=== PATIENT | male | born 1950 | race Caucasian/White ===

== ENCOUNTER 2018-02-26 15:24 | Emergency (ER) | payer MEDICARE ==
[2018-02-26 15:47] VITALS: BP 148/80
--- NOTE | 2018-02-26 16:04 | UC ---
Psychiatric Complaint HPI - HPI Summary HPI Summary: 67 yr old white male here w/ SI. He has significant mental illness. Walked himself here. Some of history comes from his that is in a separate room. She reports that he parked his car in the middle of the road and walked down the middle of the road in traffic. Speaking to the pt he states that he started to have thoughts of hurting himself this morning and was planning to drown himself. His reported to staff that he was in the pool today for many hours. He voluntarily walked himself here bc he knows he needs help/observation. STates that he broke protcol and did not call [facility] crisis line once having these thoughts. Denies harming anyone else or himself. He states that he needs to keep himself isolated right now. His is his medication care manager and fiduciary and wants to her to be aware of what is going on with him but wants her outside of [facility] room. - History Of Current Complaint Chief Complaint: UCAlteredMentalStatus Stated Complaint: MENTAL ILLNESS Time Seen by Provider: 02/26/18 15:39 - Allergies/Home Medications Allergies/Adverse Reactions: Allergies Allergy/AdvReac Type Severity Reaction Status Date / Time aripiprazole [From Abilify] Allergy Intermediate dark Verified 02/26/18 15:48 painful areas appear on skin lamotrigine [From Lamictal] AdvReac Intermediate mouth sores Verified 02/26/18 15:48 lisinopril AdvReac Coughing Verified 02/26/18 15:48 Home Medications: Home Medications NK [No Home Medications Reported] 02/26/18 [History Confirmed 02/26/18] PMH/Surg Hx/FS Hx/Imm Hx Previously Healthy: Yes Cardiovascular History: Cardiac Disease Psychological History: Anxiety, Depression - Surgical History Surgical History: Unable to Obtain/Confirm - Family History Known Family History: Positive: Cardiac Disease - both parents, Other - Dad PTSD - Social History Alcohol Use: None Substance Use Type: None Smoking Status (MU): Never Smoked Tobacco Review of Systems Constitutional: Negative Skin: Negative Eyes: Negative ENT: Negative Respiratory: Negative Cardiovascular: Negative Gastrointestinal: Negative Genitourinary: Negative Motor: Negative Neurovascular: Negative Musculoskeletal: Negative Neurological: Negative Psychological: Depressed Is Patient Immunocompromised?: No All Other Systems Reviewed And Are Negative: Yes Physical Exam Triage Information Reviewed: Yes Appearance: Well-Appearing, No Pain Distress - very calm and cooperative. lying on exam table looking straight up to ceiling while talking. speech is calm and normal w/ normal eduardo and tone., Well-Nourished Vital Signs: Initial Vital Signs Temp 95.6 F 02/26/18 15:41 Pulse 91 02/26/18 15:41 Resp 16 02/26/18 15:41 BP 148/80 02/26/18 15:41 Pulse Ox 98 02/26/18 15:41 Vital Signs Reviewed: Yes Eye Exam: Normal ENT Exam: Normal Neck exam: Normal Respiratory Exam: Normal Respiratory: Positive: Lungs clear, Normal breath sounds, No respiratory distress, No accessory muscle use. Negative: Crackles, Rhonchi, Stridor Cardiovascular Exam: Normal Cardiovascular: Positive: RRR, No Murmur, Pulses Normal Abdominal Exam: Normal Abdomen Description: Positive: Nontender, Soft Psychological Exam: Normal Skin Exam: Normal Psych Complaint Course/Dx - Course Course Of Treatment: Discussed case w/ IT HELP DESK ANALYST Gale Escamilla at [facility] that is the closest facility. @ 1600. she accepts pt. police transport x 2 w/ ambulance. - Differential Dx/Diagnosis Differential Diagnosis/HQI/PQRI: Suicidal Ideation Provider Diagnoses: Suicidal ideation. Discharge - Sign-Out/Discharge Documenting (check all that apply): Discharge/Admit/Transfer - Discharge Plan Condition: Fair Disposition: TRANS HIGHER LVL OF CARE FAC - Billing Disposition and Condition Condition: FAIR Disposition: Trans Higher Lvl of Care Fac
== END 2018-02-26 16:15 | disposition short-term general hospital (02) ==
LOC: UCCORT 15:24
DX: R45.851 Suicidal ideations (principal); Z88.8 Allergy status to other drugs, medicaments and biological substances
CPT/HCPCS: 93005; 99203; G0463